=== PATIENT | male | born 1955 | race Caucasian/White ===

== ENCOUNTER 2017-01-02 11:33 | Day surgery (SDC) | payer BC ==
[~2017-01-02 11:33] MED LIST: BUPivacaine Inj 0.25% PF - 10ml vial ONE; Clindamycin 900mg (Premix) 50 ML IV ONE; LIDOCAINE W/ SODIUM BICARB 0.5 ML SYR ONE; Lactated Ringers 1,000 ML PRIMARY IV ONE
[2017-01-02 12:15] VITALS: RESP 12
[2017-01-02] MEDS ORDERED: fentaNYL Inj 100 MCG/2 ML VIAL ONE (13:17)
[2017-01-02] MEDS ORDERED: LIDOCAINE 2% 20 MG/ML - 20 ML VIAL ONE (13:33)
[2017-01-02] MEDS ORDERED: Lactated Ringers 1,000 ML PRIMARY IV ONE (13:59)
[2017-01-02] MEDS ORDERED: diphenhydrAMINE 25 MG CAPSULE PO PRN (14:12)
[2017-01-02] MEDS ORDERED: MORPHINE SULFATE 2 MG/1 ML IVP PRN (14:12)
[2017-01-02] MEDS ORDERED: Ondansetron ODT Tab 8 MG TAB PO PRN (14:12)
[2017-01-02] MEDS ORDERED: ONDANSETRON 4 MG/2 ML VIAL IVP PRN (14:12)
[2017-01-02] MEDS ORDERED: ACETAMINOPHEN 325 MG TABLET PO PRN (14:12)
[2017-01-02] MEDS ORDERED: IBUPROFEN 400 MG TABLET PO PRN (14:12)
[2017-01-02] MEDS ORDERED: MAG HYDROX/AL HYDROX/SIMETH 30 ML SUSP PO PRN (14:12)
[2017-01-02] MEDS ORDERED: BISACODYL 10 MG SUPPOSITORY RECTAL PRN (14:12)
[2017-01-02] MEDS ORDERED: BISACODYL 5 MG TABLET PO PRN (14:12)
[2017-01-02] MEDS ORDERED: NORMAL SALINE 10 ML SYRINGE FLUSH IVP PRN (14:12)
[2017-01-02] MEDS ORDERED: HYDROcodone-APAP 5 MG -325 MG TABLET PO PRN (14:12)
[2017-01-02] MEDS ORDERED: CALCIUM CARBONATE 500 MG (TUMS) CHEWABLE TABLET PO PRN (14:12)
[2017-01-02] MEDS ORDERED: Prochlorperazine Tab 10 MG TAB PO PRN (14:12)
[2017-01-02] MEDS ORDERED: Lactated Ringers 1,000 ML PRIMARY IV SCH (14:15)
[2017-01-02 15:04] VITALS: TEMP 97.3
== END 2017-01-02 14:50 | disposition home or self-care (01) ==
LOC: SDSC 11:33
PROVIDERS: ATTEND Orthopaedic Surgery
DX: M65.341 Trigger finger, right ring finger (principal)
CPT/HCPCS: 26055; J2704; J3010; J2001; J3490; J7120